=== PATIENT | female | born 1960 | race Caucasian/White ===

== ENCOUNTER → 2024-09-15 07:53 | Outpatient (REF) | payer BC, SELFPAY | LOC: WDC 07:53 | PROVIDERS: ATTENDING PHYSICIAN Nurse Practitioner Family | DX: Z12.31 Encounter for screening mammogram for malignant neoplasm of breast (principal) | CPT/HCPCS: 77063; 77067 ==

== ENCOUNTER → 2025-03-11 07:06 | Outpatient (REF) | payer BC, SELFPAY ==
--- NOTE | 2025-03-11 08:32 | PTCARENOTE ---
Pt here for Echo Bubble Study. Pt has hx of Amplatzer ASD device. Left antecubital 22 G PC site inserted, flushed easily pre and post procedure. Procedure completed per protocol with aseptic technique. Pt tolerated procedure well. Heplock D/C ed,
site clear, no redness, pressure held-no bleeding. 2x2 applied and taped. Pt offers no complaints.
== END ==
LOC: RCS 07:06
PROVIDERS: ATTENDING PHYSICIAN Internal Medicine Interventional Cardiology; FAMILY PHYSICIAN Nurse Practitioner Family
DX: I10 Essential (primary) hypertension (principal); Z87.74 Personal history of (corrected) congenital malformations of heart and circulatory system; E78.2 Mixed hyperlipidemia; R06.09 Other forms of dyspnea
CPT/HCPCS: 93306

== ENCOUNTER → 2025-04-06 07:41 | Outpatient (REF) | payer BC, SELFPAY | LOC: PET 07:41 | PROVIDERS: ATTENDING PHYSICIAN Internal Medicine Interventional Cardiology | DX: I10 Essential (primary) hypertension (principal); Z87.74 Personal history of (corrected) congenital malformations of heart and circulatory system; R06.09 Other forms of dyspnea | CPT/HCPCS: 78431; A9555; J2785 ==